=== PATIENT | male | born 1965 | race Caucasian/White ===

== ENCOUNTER 2017-04-17 09:50 | Day surgery (SDC) | payer BC ==
[2017-04-14 09:01] VITALS: BMI 33.8
[~2017-04-17 09:50] MED LIST: LACTATED RINGERS 1,000 ML IV SCH
[2017-04-17 10:32] VITALS: RESP 18; TEMP 97.5
[2017-04-17] MEDS ORDERED: LIDOCAINE 1% 20 ML VIAL (10MG/ML) FOR IV START INTRADERMA ONE (10:35)
[2017-04-17] MEDS ORDERED: PROPOFOL 10 MG/ML 20 ML VIAL IV ONE (10:40)
--- NOTE | 2017-04-17 10:45 | P.GSHP ---
History of Present Illness H&P Date: 04/17/17 Chief Complaint: Colon cancer screening Patient here today for colonoscopy. He has not had one previously. The family history of colon cancer. No bowel related complaints. 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 Past Anesthesia/Blood Transfusion Reactions: No Reported Reaction Smoking Status: Current every day smoker - Past Family History Mother Additional Family Medical History / Comment(s): aneurysm Father Family Medical History: Cancer Additional Family Medical History / Comment(s): throat CA. Medications and Allergies Home Medications Medication Instructions Recorded Confirmed Type Atorvastatin [Lipitor] 20 mg PO HS 04/14/17 04/14/17 History Hydrocodone/Acetaminophen 1 each PO 5XD 04/14/17 04/17/17 History [Hydrocodon-Acetaminophn 10-325] Lisinopril [Zestril] 10 mg PO HS 04/14/17 04/14/17 History Allergies Allergy/AdvReac Type Severity Reaction Status Date / Time No Known Allergies Allergy Verified 04/17/17 10:33 Surgical - Exam Vital Signs Temp Pulse Resp BP Pulse Ox 97.5 F L 89 18 140/90 95 04/17/17 10:31 04/17/17 10:31 04/17/17 10:31 04/17/17 10:31 04/17/17 10:31 Physical exam: General: Well-developed, well-nourished HEENT: Normocephalic, sclerae nonicteric Abdomen: Nontender, nondistended Extremities: No edema Neuro: Alert and oriented Assessment and Plan (1) Colon cancer screening Narrative/Plan: Will proceed with colonoscopy at this time. Current Visit: Yes Status: Acute Code(s): Z12.11 - ENCOUNTER FOR SCREENING FOR MALIGNANT NEOPLASM OF COLON SNOMED Code(s): 944896272
--- NOTE | 2017-04-17 10:58 | P.PCN ---
Date of Procedure: 04/17/17 Procedure(s) Performed: PREOPERATIVE DIAGNOSIS: Colon cancer screening POSTOPERATIVE DIAGNOSIS: Descending and rectal polyp PROCEDURE: Colonoscopy with biopsy ANESTHESIA: MAC SURGEON: Danilo Vang M.D. SPECIMENS: Polyps ENDOSCOPIC PROCEDURE: The patient was placed on the endoscopy table in the left decubitus position. The Olympus colonoscope was inserted into the anus and passed under direct visualization to the base of the cecum. The appendiceal orifice was visualized. From that point the scope was slowly withdrawn inspecting all surfaces carefully. There were no neoplastic inflammatory or polypoid lesions throughout the cecum, ascending, and transverse colon. In the descending colon a small polyp was identified and removed using the cold biopsy forceps. Sigmoid colon appeared normal. Rectum showed another small polyp that was removed in a similar fashion. The remainder the rectum was normal. No visible diverticulosis. Digital rectal examination was normal. The patient was taken to the recovery room in stable condition per anesthesia guidelines. RECOMMENDATIONS: Await biopsy results.
[2017-04-17 11:21] VITALS: BP 136/87; PULSE 78
== END 2017-04-17 11:35 | disposition home or self-care (01) ==
LOC: ORWHC2ENDO 09:50
PROVIDERS: ATTEND Surgery
DX: Z12.11 Encounter for screening for malignant neoplasm of colon (principal); D12.4 Benign neoplasm of descending colon; K62.1 Rectal polyp; Z80.0 Family history of malignant neoplasm of digestive organs; E78.5 Hyperlipidemia, unspecified; I10 Essential (primary) hypertension; M19.90 Unspecified osteoarthritis, unspecified site; F17.200 Nicotine dependence, unspecified, uncomplicated; Z79.891 Long term (current) use of opiate analgesic; Z79.899 Other long term (current) drug therapy
CPT/HCPCS: 88305; 45380; J2704

== ENCOUNTER → 2017-06-08 | Outpatient (CLI) | payer BC ==
--- NOTE | 2017-06-08 11:46 | XR ---
Left shoulder HISTORY: Pain, impingement 3 views of the left shoulder Bone mineralization, joint spaces and alignment are maintained. Left lung apex as visualized is fidelina l. Some mild hypertrophic change of the acromioclavicular joint IMPRESSION: Acromioclavicular joint arthropathy. Correlate for impingement, shoulder MRI may be of be nefit.
--- NOTE | 2017-06-08 11:48 | XR ---
Left knee and left leg HISTORY: Pain 3 views of the left knee and 2 views of the left leg on 4 images Bone mineralization, joint spaces and alignment are maintained. No sizable joint effusion is evident. Unfused apophysis noted to the level of the tibial tubercle. No radiopaque foreign body. No fracture or dislocation. IMPRESSION: Consider knee MRI to assess for soft tissue abnormalities. Additional findings above.
== END | disposition home or self-care (01) ==
LOC: RADXRMAIN 08:58
PROVIDERS: ATTEND Family Medicine
DX: M12.812 Other specific arthropathies, not elsewhere classified, left shoulder (principal); M89.8X6 Other specified disorders of bone, lower leg